=== PATIENT | female | born 1945 | race Caucasian/White ===

== ENCOUNTER 2016-02-12 15:41 | Emergency (ER) | payer OTHER, MEDICARE ==
[~2016-02-12] VITALS: Ht 160 cm; Wt 74.8 kg
[2016-02-12] MEDS ORDERED: LABETALOL HCL200 MG PO (15:48)
[2016-02-12] MEDS ORDERED: LORAZEPAM1 MG PO (15:48)
[2016-02-12] MEDS ORDERED: VENLAFAXINE HY150 M2 PO (15:48)
[2016-02-12] MEDS ORDERED: ATORVASTATIN CA20 M1 PO (15:48)
[2016-02-12] MEDS ORDERED: TRAMADOL HCL50 MG PO (17:27)
== END 2016-02-12 18:53 | disposition home or self-care (01) ==
LOC: ED 15:41
DX: S86.911A Strain of unspecified muscle(s) and tendon(s) at lower leg level, right leg, initial encounter (principal); X58.XXXA Exposure to other specified factors, initial encounter; Y93.89 Activity, other specified; Y92.9 Unspecified place or not applicable; Y99.9 Unspecified external cause status

== ENCOUNTER → 2016-02-14 | Outpatient (CLI) | payer OTHER, MEDICARE ==
[~2016-02-14] MED LIST: ATORVASTATIN CA20 M1 PO; LABETALOL HCL200 MG PO; LORAZEPAM1 MG PO; TRAMADOL HCL50 MG PO; VENLAFAXINE HY150 M2 PO
== END | disposition home or self-care (01) ==
LOC: ORTHO 01:15
DX: M17.0 Bilateral primary osteoarthritis of knee (principal); M25.561 Pain in right knee; M25.562 Pain in left knee; M25.762 Osteophyte, left knee; M25.761 Osteophyte, right knee

== ENCOUNTER → 2016-08-21 | Outpatient (CLI) | payer OTHER, MEDICARE | END | disposition home or self-care (01) | LOC: MAMMO 07-31 10:00 | DX: Z12.31 Encounter for screening mammogram for malignant neoplasm of breast (principal) ==

== ENCOUNTER 2017-05-26 11:21 | Inpatient (IN) | payer OTHER, MEDICARE ==
[~2017-05-26] VITALS: Ht 160 cm; Wt 81.6 kg
[2017-05-26] VITALS (7 sets, daily range): BP systolic 135–173; BP diastolic 53–93
--- NOTE | ~2017-05-26 | PR ---
[place], [place] PROGRESS NOTE NAME: SHYANNE GARCIA [facility] #: [id number] UNIT #: [id number] ROOM: 309 DOCTOR: ROMAN ALBARRAN DO BIRTHDATE: [birth year] DOS: 05/29/2017 CHIEF COMPLAINT: Very anxious. SUMMARY OF THE VISIT: The patient was interviewed in her room. She stated that she still feels anxious, although she reports that her did remark that there was some improvement, stated that she was talking with him more yesterday per staff. She appears to be in less pain overall, that her anxiety does seem to be improving, although she continues to be anxious and depressed, seems at least at this time she is continuing to feel these things and to her does not show significant improvement. MENTAL STATUS EXAMINATION: She is alert and oriented. Mood is very depressed with anxious overtones. There are no symptoms of gordon or hypomania. No overt auditory or visual hallucinations. She is without delusions or paranoia. Short-term, intermediate and long-term memories are intact. PLAN: We will continue to increase the Cymbalta to 30 mg in the morning, 90 mg at night, decrease the Effexor to 75 mg in the morning, one time dose change the Rozerem from p.r.n. of 8 mg to scheduled at night to monitor for potential benefit. Her urine came back positive for resistant E. coli. She is put in isolation precautions. We will attempt to engage her with appropriate activities with adult coloring books and things that will allow her to keep her busy instead of focusing on her anxiety and depression. I reassured her that her family is able to visit. We will continue to engage her individually at this time and monitor her with a plan to return her to the least restrictive environment when psychiatrically stable. ROMAN ALBARRAN DO RUFUS FELIX MD CM:PNTRANS [phone] ROMAN ALBARRAN DO 05/29/17 1236 interface
--- NOTE | ~2017-05-26 | PR ---
[place], [place] PROGRESS NOTE NAME: SHYANNE GARCIA UNIT #: [id number] ROOM: 309 DOCTOR: RUFUS FELIX MD BIRTHDATE: [birth year] DOS: 05/30/2017 CHIEF COMPLAINT: "I think I am getting better, but will this ever go away completely." SUMMARY OF THE VISIT: The patient was interviewed in her room. She was resting in bed. She reported that she tossed and turned somewhat last night. Overall, she is noting that she is feeling better, but still has periods where she cries and the pain is still excruciating. She still notes frequent bouts of depression and anxiety, but overall does feel a trend towards improvement. She reports tolerating the medication, titration up and down well. MENTAL STATUS: She is alert and oriented. Mood does seem to be trending towards euthymia. Affect is more appropriate. There are less anxiety and less outward depression. She did not cry during the interview today at all. There is no hypomania or gordon. There are no overt auditory or visual hallucinations. No delusions, no paranoia. Memory for the most part is intact. PLAN: I will maintain Cymbalta at 120 mg a day, continuing to taper the Effexor XR from 75 mg a day to 37.5. I will discontinue Rozerem due to ineffectiveness and start Klonopin 1 mg at bedtime to augment the effectiveness of the Ativan. Continue to engage in individual and perdue milieu activity with the plan to return to the least restrictive environment when psychiatrically stable. RUFUS FELIX MD CM:PNTRANS [id number] RUFUS FELIX MD 05/30/17 1116 interface
--- NOTE | ~2017-05-26 | WRIGHTHP ---
[place], [place] PATIENT HISTORY AND PHYSICAL EXAM NAME: SHYANNE GARCIA [facility] #: [id number] UNIT #: [id number] ROOM: 310 DOCTOR: RUFUS FELIX MD BIRTHDATE: [birth year] DOS: 05/27/2017 INITIAL PSYCHIATRIC EVALUATION CHIEF COMPLAINT: "I have just been so depressed and I am in so much pain." HISTORY OF PRESENT ILLNESS: This is a 72-year-old white female who presented to the Emergency Room at [facility] with complaints of increased depression, increased pain and increased anxiety. The patient recently had a right knee replacement performed at [facility] on May 04 and has been in unbearable pain since that time. She states that this pain has worn her down to the point where her depression, which has been long-standing has exacerbated during this 3-week period of time. She endorses poor sleep with difficulty falling asleep, sleep continuity disturbance, toddler teacher awakening, anergia, anhedonia, hopeless, helpless feelings, crying spells and inability to cope. Additionally, her anxiety level is quite high and she finds herself hyperventilating and feeling tightness in her chest quite often. She rates the pain on a scale of 1-10 with 10 being the worst pain, consistent 10. She is admitted now to rule out any organic factors, to stabilize on medication, to engage in individual and perdue milieu activity, returning to the least restrictive environment when psychiatrically stable. PAST MEDICAL HISTORY: Remarkable for degenerative joint disease and a right total knee replacement. MENTAL STATUS: Upon admission, the patient is alert and oriented. Mood is overwhelmingly depressed. Affect is flat, blunted and constricted and she openly cried throughout the interview. She endorses multiple neurovegetative symptoms and fleeting suicidal thoughts. She also endorses significant anxiety with much autonomic nervous system dysfunction. There is no hypomania or gordon. There are no auditory or visual hallucinations. No delusions, no paranoia. Short, intermediate and long-term memories are intact. DIAGNOSIS: Major depression, recurrent, severe and anxiety disorder, not otherwise specified. PLAN: I have already started to taper her Effexor. She presented with a dose of 150 mg twice daily. I have cut the dose down to 75 mg twice daily. I have started to cross taper then with Cymbalta 30 mg at bedtime, which I will now increase to 60 mg at bedtime, targeting a dose between 90 and 120. Screening examinations upon admission showed her vitamin D level to be low at 23.5, so I will augment with vitamin D 50,000 International Units weekly. We will engage in individual and perdue milieu activity, returning then to the least restrictive environment when psychiatrically stable. [place], [place] PATIENT HISTORY AND PHYSICAL EXAM NAME: SHYANNE GARCIA UNIT #: [id number] ROOM: 310 DOCTOR: RUFUS FELIX MD BIRTHDATE: [birth year] RUFUS FELIX MD CM:HISPHYS:PATIENT HISTORY AND PHYSICAL EXAMINATION [id number] RUFUS FELIX MD 05/27/17 1133 interface
--- NOTE | ~2017-05-26 | PR ---
[place], [place] PROGRESS NOTE [id number] UN[facility] #: [id number] ROOM: 310 DOCTOR: RUFUS FELIX MD BIRTHDATE: [birth year] DOS: 05/28/2017 CHIEF COMPLAINT: "The anxiety and depression is just driving me crazy. I am so sorry I'm crying." SUMMARY OF THE VISIT: The patient was interviewed in the group therapy room. She immediately burst into tears as I began talking to her. She reported to me that the pain is excruciating. The anxiety has still been high and her depression is overwhelming. She had poor sleep last night with difficulty falling asleep, sleep continuity disturbance and sandstone splitter awakening. She convincingly reports that if she has to live like this, she would rather be and would entertain suicide as the only option. She also though convincingly reports no side effects and is willing to allow me to adjust the medicines accordingly. MENTAL STATUS: She is alert and oriented. Mood is overwhelmingly depressed with anxious overtones. There is no gordon or hypomania. There are no overt auditory or visual hallucinations. No delusions, no paranoia. Short, intermediate, and long-term memory are intact. PLAN: I will increase the nighttime Cymbalta to 90 mg at bedtime, add Rozerem 8 mg at bedtime as needed and order straight Ativan 1 mg 3 times a day to try to get ahead of the anxiety, engage her in individual and perdue milieu activities with the plan to return home when psychiatrically stable. RUFUS FELIX MD CM:PNTRANS [id number] RUFUS FELXI MD 05/28/17 1208 interface
--- NOTE | ~2017-05-26 | PR ---
[place], [place] PROGRESS NOTE [id number] UNIT #: [id number] ROOM: 309 DOCTOR: RUFUS FELIX MD BIRTHDATE: [birth year] DOS: 05/31/2017 CHIEF COMPLAINT: "This pain isn't in my head. I think people don't believe me. I am just having a hard time with it." HISTORY OF THE VISIT: The patient was interviewed in her room. She reports to me that she did have a good day and overall felt like there was improvement in her mood and even to some extent her pain level. Her pain began to worsen in the evening when family had left and her mind went back to it and was able to focus on it more. She feels that people believe that she is just drug seeking or is making up the pain and was quite upset about this. Of note, the way she describes the pain is not the surgery site, but rather the pain starts at the bottom of her foot and travels up the lateral aspect of her leg into her hip. She does report tolerating all the medication changes well and does feel that the medicine is starting to benefit her. MENTAL STATUS: She is alert and oriented. Mood does seem to be trending towards euthymia and her anxiety is coming under control. There is no hypomania or gordon. There are no overt auditory or visual hallucinations, delusions or paranoia. Memory is intact. PLAN: I will discontinue the Effexor once and for all and maintain the Cymbalta. I will increase her nighttime dose of Klonopin from 1 mg to 2 mg at bedtime. I will defer this to the hospitalist, but I do wonder if a nerve conduction study on her right leg is warranted to see if there is any nerve damage from the surgery. We will continue to engage in individual and perdue milieu activity with the plan to return to the least restrictive environment when psychiatrically stable. URFUS FELIX MD CM:PNTRANS [id number] RUFUS FELIX MD 05/31/17 1026 interface
--- NOTE | ~2017-05-26 | DS ---
[place], [place] DISCHARGE SUMMARY NAME: SHYANNE GARCIA [facility] #: [id number] UNIT #: [id number] ROOM: 309 DOCTOR: RUFUS FELIX MD BIRTHDATE: [birth year] DOS: 06/01/2017 CHIEF COMPLAINT: "I have just been so depressed and I am in so much pain." HISTORY OF PRESENT ILLNESS: This is a 72-year-old white female who presented to the Emergency Room at [facility] with the complaints of increased depression, increased anxiety and increased pain. The patient recently had right knee replacement done at [facility] on May 04 and has been in unbearable pain since that time. She states that this pain has worn her down to the point where her depression, which has been longstanding, has been exacerbated during this 3-week period of time. During this period, she endorses poor sleep with difficulty falling asleep, sleep continuity disturbance, asparagus cutter awakening, anergia, anhedonia, hopeless, helpless feelings, crying spells, and inability to cope. Additionally, her anxiety level has been quite high and she finds herself hyperventilating and tightness of the chest. She rates the pain, currently on a scale of 1-10 with 10 being the worst pain ever, a 10. She is admitted now to rule out any organic factors, to stabilize on medication, to engage in individual and perdue milieu activities, returning to the least restrictive environment when psychiatrically stable. PAST MEDICAL HISTORY: Remarkable for degenerative joint disease and the right knee total replacement. SUMMARY OF HOSPITAL COURSE: The patient was admitted to the unit where she was found to be on Effexor 150 mg twice daily. This was cut in half to 75 mg twice daily. Initially during the early part of her stay, her blood pressure was elevated. Whether her blood pressure elevation was based on the tapering of the Effexor or her pain and anxiety was unclear, this stabilized pretty quickly. She was cross tapered on to Cymbalta 30 mg at bedtime, which was rapidly increased during her stay to its maximum dose of 30 mg in the morning and 90 mg at night. Eventually, the Effexor was successfully tapered and discontinued without any adverse event. She was maintained also on Ativan 1 mg 3 times daily. Later in her stay because she was having significant sleep disturbance, Klonopin 1 mg a day at bedtime, later increased to 2 mg at bedtime was added. She tolerated these medications well and exhibited no sedation, no daytime somnolence. Her depression and anxiety lifted considerably as did her pain. She voiced very positive plans for the future and was going to follow up with Renetta Pearson at [facility] for medication management. Coincidentally, the patient did have a low vitamin D level upon admission of 23.5, so vitamin D 50,000 International Units weekly was added. The patient was discharged then back home on 06/01/2017. She was medically and psychiatrically stable. Her biopsychosocial needs are adequately being met by her family and by her outpatient providers. MENTAL STATUS AT DISCHARGE: The patient is alert and oriented. Mood does seem to be trending towards euthymia. Affect is more appropriate. There is no gordon, hypomania or psychosis. No suicidal thoughts, no homicidal thoughts. Memory is intact. FINAL DIAGNOSES: Major depression, recurrent, severe, and generalized anxiety [place], [place] DISCHARGE SUMMARY NAME: SHYANNE GARCIA UNIT #: [id number] ROOM: 309 DOCTOR: RUFUS FELIX MD BIRTHDATE: [birth year] disorder. PLAN: All of her prescriptions have been printed and will be sent with her. She will follow up with Renetta Pearson at [facility]. She is medically stable, psychiatrically stable and her biopsychosocial needs are adequately being met. RUFUS FELIX MD CM:DISCHARG [phone] RUFUS FELIX MD 06/01/17 0903 interface
[2017-05-26 12:48] LABS: BASO # 0.1 10*3/uL (0.0-0.1); BASO % 0.5 % (0.0-1.0); HEMATOCRIT 42.7 % (37.0-47.0); HEMOGLOBIN 14.2 g/dl (12.0-16.0); LYMPH # 1.4 10*3/uL (1.3-4.4); LYMPH % 14.2 % (27.0-41.0); MEAN CORPUSCULAR HGB 28.9 pg (27.0-31.0); MEAN CORPUSCULAR HGB CONC 33.3 g/dl (33.0-37.0); MEAN PLATELET VOLUME 10.4 fl (9.6-12.3); MONO # 0.7 10*3/uL (0.1-1.0); MONO % 7.5 % (3.0-9.0); NEUT # 7.7 10*3/uL (2.3-7.9); NEUT % 77.4 % (47.0-73.0); PLATELET COUNT AUTOMATED 474 10*3/uL (130-400); RED BLOOD COUNT 4.91 10*6/uL (4.10-5.10); RED CELL DISTRI WIDTH 13.3 % (0-14.5); WHITE BLOOD COUNT 9.9 10*3/uL (4.8-10.8)
[2017-05-26 13:05] LABS: ALBUMIN 3.9 gm/dl (3.1-4.5); ALKALINE PHOSPHATASE 158 U/L (45-117); BUN 18 mg/dl (7-24); CHLORIDE 102 mmol/L (98-107); CREATININE 0.72 mg/dL (0.55-1.02); POTASSIUM 3.9 mmol/L (3.5-5.1); SGOT/AST 15 IU/L (3-35); SGPT/ALT 21 U/L (12-78); SODIUM 136 mmol/L (136-145); TOTAL PROTEIN 8.2 gm/dL (6.4-8.2)
[2017-05-26 14:16] LABS: BILIRUBIN NEGATIVE (NEGATIVE); BLOOD 1+ (NEGATIVE); CLARITY CLOUDY (CLEAR); COLOR YELLOW (YELLOW); GLUCOSE NEGATIVE (NEGATIVE); KETONE NEGATIVE (NEGATIVE); LEUKO ESTERASE TRACE (NEGATIVE); NITRITE POSITIVE (NEGATIVE); SPECIFIC GRAVITY 1.025 (1.005-1.030); UROBILINOGEN 0.2 E.U./dl (0.2-1.0)
[2017-05-26 14:27] LABS: RBC 0-2 rbc/hpf (0-2)
[2017-05-26 14:28] LABS: BACTERIA 4+; EPITHELIAL CELLS 0-2; MUCOUS TRACE
[2017-05-26] MEDS ORDERED: MEDROL DOSEPAK4 MG PO (17:47)
[2017-05-26] MEDS ORDERED: NORVASC5 MG PO (17:48)
[2017-05-26] MEDS ORDERED: PERCOCET 5-3251 EACH PO (17:50)
[2017-05-27 06:45] LABS: BASO % 0.4 % (0.0-1.0); EOS # 0.1 10*3/uL (0.0-0.4); EOS % 1.5 % (1.0-4.0); HEMATOCRIT 39.8 % (37.0-47.0); LYMPH # 2.4 10*3/uL (1.3-4.4); LYMPH % 26.9 % (27.0-41.0); MEAN CORPUSCULAR HGB 29.1 pg (27.0-31.0); MEAN CORPUSCULAR HGB CONC 32.7 g/dl (33.0-37.0); MEAN PLATELET VOLUME 10.1 fl (9.6-12.3); MONO # 0.9 10*3/uL (0.1-1.0); MONO % 9.7 % (3.0-9.0); NEUT # 5.5 10*3/uL (2.3-7.9); NEUT % 61.1 % (47.0-73.0); PLATELET COUNT AUTOMATED 412 10*3/uL (130-400); RED BLOOD COUNT 4.47 10*6/uL (4.10-5.10); RED CELL DISTRI WIDTH 13.3 % (0-14.5)
[2017-05-27 06:54] LABS: THYROID STIM HORMONE (HS) 1.95 uIU/ml (0.358-4.75)
[2017-05-27 08:00] VITALS: BP 177/69
[2017-05-27 09:50] LABS: VITAMIN D, 25-HYDROXY 23.5 ng/mL (30-100)
[2017-05-27 20:00] VITALS: BP 167/79
[2017-05-28 09:07] VITALS: BP 165/65
[2017-05-28 20:06] VITALS: BP 158/71
[2017-05-29 07:52] VITALS: BP 158/72
[2017-05-29 20:01] VITALS: BP 151/62
[2017-05-30 07:59] VITALS: BP 146/78
[2017-05-30 20:00] VITALS: BP 153/69
[2017-05-31 07:18] VITALS: BP 141/76
[2017-05-31 20:23] VITALS: BP 136/72
[2017-06-01 07:55] VITALS: BP 153/72
[2017-06-01] MEDS ORDERED: KLONOPIN2 M1 PO (08:22)
[2017-06-01] MEDS ORDERED: LORAZEPAM1 MG PO (08:22)
[2017-06-01] MEDS ORDERED: DULOXETINE HCL30 MG PO ×2 (08:22)
[2017-06-01] MEDS ORDERED: Vitamin D PO (08:22)
[2017-06-01] MEDS ORDERED: Septra SS 400 MG-80 PO (11:58)
== END 2017-06-01 13:00 | disposition home or self-care (01) | DRG 885 ==
LOC: ED 11:21 → 3N 16:20
PROVIDERS: Emergency Medicine; Psychiatry & Neurology Psychiatry
DX: F33.2 Major depressive disorder, recurrent severe without psychotic features (principal); N39.0 Urinary tract infection, site not specified; D47.3 Essential (hemorrhagic) thrombocythemia; D72.810 Lymphocytopenia; F41.1 Generalized anxiety disorder; D72.9 Disorder of white blood cells, unspecified; Z96.651 Presence of right artificial knee joint; R00.0 Tachycardia, unspecified; R06.82 Tachypnea, not elsewhere classified; D72.818 Other decreased white blood cell count; R73.9 Hyperglycemia, unspecified; E66.09 Other obesity due to excess calories; M17.11 Unilateral primary osteoarthritis, right knee; Z68.31 Body mass index [BMI] 31.0-31.9, adult; Z79.899 Other long term (current) drug therapy; Z82.49 Family history of ischemic heart disease and other diseases of the circulatory system; Z81.2 Family history of tobacco abuse and dependence

== ENCOUNTER 2017-07-08 09:53 | Inpatient (IN) | payer OTHER, MEDICARE ==
[~2017-07-08] VITALS: Ht 162.5 cm; Wt 75.7 kg
--- NOTE | ~2017-07-08 | DS ---
[place], [place] DISCHARGE SUMMARY NAME: SHYANNE GARCIA [facility] #: [id number] UNIT #: [id number] ROOM: 310 DOCTOR: RUFUS FELIX MD BIRTHDATE: [birth year] DOS: 07/13/2017 CHIEF COMPLAINT: "I felt so horrible. I don't know. I think it was the Remeron." HISTORY OF PRESENT ILLNESS: This is a 72-year-old white female known to me from [facility]. The patient presented to the emergency room with complaints of feeling jittery and ready to jump out of her skin. She reports that following her discharge from the psychiatric unit, she was prescribed just Cymbalta 90 mg a day. Her nurse practitioner at [facility] subsequently added BuSpar and then most recently added Remeron. Following the addition of the Remeron, the patient began to decompensate considerably. She noticed very bizarre, vivid dreams with significant sleep disturbance, increased daytime anxiety with jittery feelings, extreme abdominal pain, shortness of breath and inability to cope. The patient was unclear what was causing these symptoms and thought it might be the medication itself. She did discontinue the Remeron on Thursday prior to coming to the hospital, but continued to feel the symptoms to the point where she presented to the emergency room complaining of depression and a plethora of somatic complaints. She is now admitted to the [facility] to rule out further organic factors and to attempt to re-stabilize on her medication, returning home when stable. PAST MEDICAL HISTORY: Remarkable for degenerative joint disease, hypertension, hyperlipidemia, obesity, vitamin D deficiency, recent total knee. The patient denies alcohol use. Does not use illicit drugs or smoke cigarettes. STRENGTHS: She is ambulatory. She is relatively healthy. She lives in a very supportive living environment and has good verbal skills. SUMMARY OF THE HOSPITAL COURSE: The patient was admitted to the unit where her Remeron and BuSpar were discontinued and she was maintained on Cymbalta 30 mg in the morning and 60 mg at bedtime. She utilized Ativan sparingly to help with some breakthrough anxiety and also use Rozerem and trazodone sparingly as a nighttime sleep aid. With the Cymbalta alone and without the other medicines on board, the patient's symptoms dissipated. Lot of support and encouragement was given to her to understand that what she was experiencing was medication side effects and would be time limited. She improved sufficiently over her course and she felt positive about returning home and voiced positive plans for the future. She convincingly denied medication side effects at the time of discharge. MENTAL STATUS AT DISCHARGE: The patient is alert and oriented to person, place and time. Mood does seem to be strongly trending towards euthymia and affect is much more appropriate. There is no symptom suggestive of gordon or hypomania. There is no psychotic symptomatology seen. Short, intermediate and long-term memory are intact. DIAGNOSES AT DISCHARGE: Major depression, recurrent, severe and anxiety [place], [place] DISCHARGE SUMMARY NAME: SHYANNE GARCIA UNIT #: [id number] ROOM: 310 DOCTOR: RUFUS FELIX MD BIRTHDATE: [birth year] disorder, not otherwise specified. DISPOSITION: The patient is to return home. She will have followup by her outpatient provider. Her prescriptions have been e-scribed to [facility]. She is medically and psychiatrically stable. Her biopsychosocial needs are adequately being met by the community at large. RUFUS FELIX MD CM:MONCHO [phone] RUFUS FELIX MD 07/13/17 5338 interface
--- NOTE | ~2017-07-08 | PR ---
[place], [place] PROGRESS NOTE [id number] UN[facility] #: [id number] ROOM: 310 DOCTOR: LUIS E YUSUF MD BIRTHDATE: [birth year] DOS: 07/12/2017 SUBJECTIVE: Patient seen and spoke with the staff. Per staff, patient did not sleep well last night. Still very needy, rude at times. Patient was pleasant and cooperative. She was in the day area. She said that she is doing well and feeling better. She talked about her poor sleep, did not express any other problems or concerns. She said she is taking her medication regularly and did not have any side effect. She denied any depressed mood or hopelessness. MENTAL STATUS EXAMINATION: Pleasant and cooperative. Described her mood as "better." Affect, mood congruent. Thought process goal directed. No flight of ideas, loosening of association. She denied auditory or visual hallucination. No delusion or paranoia noted. She denied suicidal ideation, intent or plan. She also denied any homicidal ideation, intent or plan. PLAN: 1. Continue current medications and care. 2. Continue redirection. 3. Supportive care. 4. Final medication management and discharge plan by the regular team. LUIS E YUSUF MD CM:PNTRANS [phone] LUIS E YUSUF MD 07/13/17 1519 interface
--- NOTE | ~2017-07-08 | PR ---
[place], [place] PROGRESS NOTE [id number] #: [id number] ROOM: 310 DOCTOR: LUIS E YUSUF MD BIRTHDATE: [birth year] DOS: 07/11/2017 PSYCHIATRIC PROGRESS NOTE SUBJECTIVE: The patient seen and spoke with the staff. Per staff, the patient is attention-seeking, taking medication. She slept only 1-1/2 hours last night. The patient was pleasant and cooperative. She reports being anxious, but said that the anxiety is not as bad as before. She also talked about poor sleep. She denied any thoughts of harming herself or anyone else. She also denied any side effect from the medication. MENTAL STATUS EXAMINATION: Pleasant, cooperative, described her mood as "okay." Affect was constricted. Thought process goal-directed. No flight of ideas or loosening of association. She denied auditory or visual hallucination. No delusion or paranoia noted. She denied suicidal ideation, intent or plan. She also denied any homicidal ideation, intent or plan. PLAN: 1. Continue current medication and care. 2. Continue redirection. 3. Encourage activity and groups. LUIS E YUSUF MD CM:PNTRANS 26 3 LUIS E YUSUF MD 07/12/17 0343 interface
--- NOTE | ~2017-07-08 | WRIGHTHP ---
[place], [place] PATIENT HISTORY AND PHYSICAL EXAM [id number] #: [id number] ROOM: 310 DOCTOR: RUFUS FELIX MD BIRTHDATE: [birth year] DOS: 07/09/2017 CHIEF COMPLAINT: "I felt so horrible, I don't know. I think it was the Remeron." HISTORY OF PRESENT ILLNESS: This is a 72-year-old white female known to me from a previous admission here to the [facility]. The patient presented to the ER with complaints of feeling jittery and ready to jump out of her skin. She reports following her discharge from the psychiatric unit prescribed just Cymbalta 90 mg a day. Her nurse practitioner at [facility] subsequently added BuSpar and then most recently added Remeron. Following the addition of the Remeron, the patient began to decompensate considerably. She noticed very bizarre, vivid dreams, sleep disturbance, increased anxiety, jittery feeling, extreme abdominal pain, feeling short of breath and unable to cope. The patient was unclear whether it was the medication or not. She did discontinue the Remeron on Thursday prior to coming into the hospital, but continued to feel miserable to the point where she presented to the Emergency Room complaining of increased depression as well as this plethora of somatic complaints. She is admitted now to rule out possible organic factors to attempt to re-stabilize on medication, to engage in individual and perdue milieu activity, returning home when stable. PAST MEDICAL HISTORY: Remarkable for degenerative joint disease, hypertension, hyperlipidemia, obesity, vitamin D deficiency and a recent total knee replacement. From a social standpoint, she denies alcohol use. She does not use illicit drugs nor does she smoke cigarettes. STRENGTHS: The patient is ambulatory. She is relatively healthy. She lives in a very supportive living environment and she has good verbal skills. MENTAL STATUS. Upon admission, the patient is alert and oriented x 3. Mood is somewhat depressed with anxious overtones. She endorses multiple neurovegetative symptoms. There is no hypomania or gordon. There are no auditory or visual hallucinations currently. There is no paranoia or delusions. Short term, intermediate, and long-term memory for the most part are intact. DIAGNOSIS: Major depression, recurrent, severe, and generalized anxiety disorder. PLAN: I have discontinued her Remeron and BuSpar and maintained her on Cymbalta 30 mg in the morning and 60 mg at bedtime. She can utilize Ativan as needed to help with breakthrough anxiety. We will continue to have her engage in individual and perdue milieu activity, returning then home when stable. [place], [place] PATIENT HISTORY AND PHYSICAL EXAM NAME: SHYANNE GARCIA UNIT #: [id number] ROOM: 310 DOCTOR: RUFUS FELIX MD BIRTHDATE: [birth year] RUFUS FELIX MD CM:HISPHYS:PATIENT HISTORY AND PHYSICAL EXAMINATION 1017 RUFUS FELIX MD 07/09/17 1015 interface
--- NOTE | ~2017-07-08 | PR ---
[place], [place] PROGRESS NOTE NAME: SHYANNE GARCIA UNIT #: [id number] ROOM: 310 DOCTOR: VALE ROA DO BIRTHDATE: [birth year] DOS: 07/10/2017 PSYCHIATRIC PROGRESS NOTE CHIEF COMPLAINT: "I need help." SUMMARY OF VISIT: This is a 72-year-old white female who appears teary eyed and in mild distress, sitting in a chair in the dining room. Patient states that she was not able to sleep at all last night and that she still hears ringing in her ear and she would like it to be stopped. Patient revealed to nursing staff this morning that actually she is on another blood pressure medication that she takes twice daily. Upon confirmation, it was labetalol that she gets b.i.d. and patient was given that medication. She states that she is very jittery and is not feeling like herself. She is very nervous about taking Ativan because she was told not to take it in the past. Patient would like something to help her calm her down and she would like something to stop the ringing in her ears. MENTAL STATUS EXAMINATION: Patient is alert and oriented to self, place and time. Her mood is very anxious. There is currently no hypomania or gordon. There is ringing of the ears that she is hearing that she said comes and goes, but currently has been there since last night. Short term, intermediate, and long-term memory are intact. PLAN: We will start her on Rozerem 80 p.o. at bedtime p.r.n. for helping her to sleep at night. She will get Ativan p.r.n. for some of the anxious episodes that she is experiencing to help with the breakthrough anxiety. She will be returning home when she is stable at a psychiatric level. ADDENDUM BY DR. FELIX 07/16/17 11:15 AM: Above note reviewed. Agree with observations, recommendations, and overall treatment plan. Vale Roa DO [place], [place] PROGRESS NOTE NAME: SHYANNE GARCIA UNIT #: [id number] ROOM: 310 DOCTOR: VALE ROA DO BIRTHDATE: [birth year] RUFUS FELIX MD CM:MARGARITA [id number] T: VALE ROA DO 07/16/17 1410 JERSON GARCIA.R
[~2017-07-08 09:53] MED LIST changes: +DULOXETINE HCL30 MG PO; +KLONOPIN2 M1 PO; +MEDROL DOSEPAK4 MG PO; +NORVASC5 MG PO; +PERCOCET 5-3251 EACH PO; +Septra SS 400 MG-80 PO; +Vitamin D PO
[2017-07-08 09:57] VITALS: BP 151/60
[2017-07-08 10:48] LABS: BASO # 0.1 10*3/uL (0.0-0.1); BASO % 0.5 % (0.0-1.0); EOS # 0.2 10*3/uL (0.0-0.4); EOS % 1.9 % (1.0-4.0); HEMATOCRIT 39.7 % (37.0-47.0); LYMPH % 20.3 % (27.0-41.0); MEAN CELL VOLUME 86.1 fl (81.0-99.0); MEAN CORPUSCULAR HGB 28.2 pg (27.0-31.0); MEAN CORPUSCULAR HGB CONC 32.7 g/dl (33.0-37.0); MEAN PLATELET VOLUME 10.1 fl (9.6-12.3); MONO # 0.9 10*3/uL (0.1-1.0); MONO % 8.7 % (3.0-9.0); NEUT # 6.8 10*3/uL (2.3-7.9); NEUT % 68.2 % (47.0-73.0); PLATELET COUNT AUTOMATED 347 10*3/uL (130-400); RED BLOOD COUNT 4.61 10*6/uL (4.10-5.10); RED CELL DISTRI WIDTH 13.5 % (0-14.5)
[2017-07-08 10:56] LABS: BILIRUBIN NEGATIVE (NEGATIVE); BLOOD NEGATIVE (NEGATIVE); CLARITY SL CLOUDY (CLEAR); COLOR YELLOW (YELLOW); GLUCOSE NEGATIVE (NEGATIVE); KETONE TRACE (NEGATIVE); LEUKO ESTERASE TRACE (NEGATIVE); NITRITE NEGATIVE (NEGATIVE); SPECIFIC GRAVITY >= 1.030 (1.005-1.030); UROBILINOGEN 0.2 E.U./dl (0.2-1.0)
[2017-07-08 10:56] LABS: ACT PARTIAL THROMBO TIME 22.7 SECONDS (20.8-31.5)
[2017-07-08 11:03] LABS: ALBUMIN 3.7 gm/dl (3.1-4.5); ALKALINE PHOSPHATASE 124 U/L (45-117); BUN 15 mg/dl (7-24); CHLORIDE 110 mmol/L (98-107); CREATININE 0.69 mg/dL (0.55-1.02); LIPASE 252 U/L (73-393); POTASSIUM 3.5 mmol/L (3.5-5.1); SGOT/AST 13 IU/L (3-35); SGPT/ALT 20 U/L (12-78); SODIUM 141 mmol/L (136-145); TOTAL PROTEIN 7.8 gm/dL (6.4-8.2)
[2017-07-08 11:06] LABS: TROPONIN I < 0.015 ng/ml (<0.045)
[2017-07-08 11:12] LABS: BACTERIA 1+; CALCIUM OXALATE CRYSTALS 3+; MUCOUS 2+
[2017-07-08] MEDS ORDERED: BUSPAR15 MG PO (14:07)
[2017-07-08] MEDS ORDERED: CYMBALTA60 MG PO (14:08)
[2017-07-08] MEDS ORDERED: REMERON15 M2 PO (14:11)
[2017-07-08 15:04] VITALS: BP 157/58
[2017-07-08 15:09] VITALS: BP 157/58
[2017-07-08 20:00] VITALS: BP 138/69
[2017-07-09 07:06] LABS: THYROID STIM HORMONE (HS) 2.19 uIU/ml (0.358-4.75)
[2017-07-09 07:56] VITALS: BP 134/87
[2017-07-09 08:34] LABS: VITAMIN D, 25-HYDROXY 34.5 ng/mL (30-100)
[2017-07-09 20:29] VITALS: BP 168/80
[2017-07-10 08:05] VITALS: BP 240/98
[2017-07-10] MEDS ORDERED: LABETALOL HCL200 MG PO (08:52)
[2017-07-10 09:05] VITALS: BP 220/90
[2017-07-10 10:58] VITALS: BP 198/88
[2017-07-10 16:37] VITALS: BP 158/86
[2017-07-10 19:21] VITALS: BP 147/66
[2017-07-11 07:34] VITALS: BP 150/67
[2017-07-11 20:00] VITALS: BP 148/68
[2017-07-12 07:41] VITALS: BP 154/66
[2017-07-12 20:29] VITALS: BP 146/72
[2017-07-13 08:00] VITALS: BP 156/64
[2017-07-13] MEDS ORDERED: ZOSTRIX 0.025%,60 GM T (09:13)
[2017-07-13] MEDS ORDERED: DULOXETINE HCL60 MG PO (09:13)
[2017-07-13] MEDS ORDERED: DULOXETINE HCL30 MG PO (09:13)
[2017-07-13] MEDS ORDERED: HYDROXYZINE PAM25 M1 PO (09:13)
== END 2017-07-13 12:58 | disposition home or self-care (01) | DRG 885 ==
LOC: ED 09:53 → 3N 14:02
PROVIDERS: Emergency Medicine; Psychiatry & Neurology Psychiatry
DX: F33.2 Major depressive disorder, recurrent severe without psychotic features (principal); E87.8 Other disorders of electrolyte and fluid balance, not elsewhere classified; E83.41 Hypermagnesemia; R82.71 Bacteriuria; D72.810 Lymphocytopenia; R74.8 Abnormal levels of other serum enzymes; R80.9 Proteinuria, unspecified; F41.1 Generalized anxiety disorder; I10 Essential (primary) hypertension; E78.5 Hyperlipidemia, unspecified; M19.90 Unspecified osteoarthritis, unspecified site; E66.9 Obesity, unspecified; Z96.659 Presence of unspecified artificial knee joint; E55.9 Vitamin D deficiency, unspecified; Z82.49 Family history of ischemic heart disease and other diseases of the circulatory system; Z81.2 Family history of tobacco abuse and dependence; Z79.899 Other long term (current) drug therapy; Z68.28 Body mass index [BMI] 28.0-28.9, adult

== ENCOUNTER → 2018-04-28 | Outpatient (CLI) | payer OTHER, MEDICARE ==
[~2018-04-28] MED LIST changes: +BUSPAR15 MG PO; +CYMBALTA60 MG PO; +DULOXETINE HCL60 MG PO; +HYDROXYZINE PAM25 M1 PO; +REMERON15 M2 PO; +ZOSTRIX 0.025%,60 GM T
== END | disposition home or self-care (01) ==
LOC: MAMMO 08:40
DX: Z12.31 Encounter for screening mammogram for malignant neoplasm of breast (principal)

== ENCOUNTER → 2020-01-04 | Outpatient (CLI) | payer OTHER, MEDICARE | END | disposition home or self-care (01) | LOC: MAMMO 10:10 | PROVIDERS: ATTEND Nurse Practitioner Family | DX: Z12.31 Encounter for screening mammogram for malignant neoplasm of breast (principal) ==

== ENCOUNTER → 2020-01-18 | Outpatient (CLI) | payer OTHER, MEDICARE | END | disposition home or self-care (01) | LOC: US 13:41 | PROVIDERS: ATTEND Nurse Practitioner Family | DX: K76.0 Fatty (change of) liver, not elsewhere classified (principal); N28.1 Cyst of kidney, acquired ==

== ENCOUNTER → 2020-10-18 | Outpatient (CLI) | payer OTHER, MEDICARE ==
[2020-10-18 11:03] LABS: BASO # 0.1 10*3/uL (0.0-0.1); EOS # 0.3 10*3/uL (0.0-0.4); EOS % 4.9 % (1.0-4.0); HEMATOCRIT 41.5 % (37.0-47.0); LYMPH # 1.5 10*3/uL (1.3-4.4); LYMPH % 21.4 % (27.0-41.0); MEAN CELL VOLUME 87.4 fl (81.0-99.0); MEAN CORPUSCULAR HGB 29.5 pg (27.0-31.0); MEAN CORPUSCULAR HGB CONC 33.7 g/dl (33.0-37.0); MEAN PLATELET VOLUME 10.5 fl (9.6-12.3); MONO # 0.6 10*3/uL (0.1-1.0); MONO % 9.2 % (3.0-9.0); NEUT # 4.3 10*3/uL (2.3-7.9); NEUT % 63.4 % (47.0-73.0); PLATELET COUNT AUTOMATED 296 10*3/uL (130-400); RED BLOOD COUNT 4.75 10*6/uL (4.10-5.10); RED CELL DISTRI WIDTH 13.1 % (0-14.5); WHITE BLOOD COUNT 6.8 10*3/uL (4.8-10.8)
[2020-10-18 11:31] LABS: ALBUMIN 3.3 gm/dl (3.1-4.5); ALKALINE PHOSPHATASE 93 U/L (45-117); BUN 9 mg/dl (7-24); CHLORIDE 109 mmol/L (98-107); CHOLESTEROL 168 mg/dL (<200); CREATININE 0.73 mg/dL (0.55-1.02); LDL CHOLESTEROL 88 mg/dL (9-159); POTASSIUM 4.3 mmol/L (3.5-5.1); SGOT/AST 10 IU/L (3-35); SGPT/ALT 18 U/L (12-78); SODIUM 139 mmol/L (136-145); TOTAL PROTEIN 7.6 gm/dL (6.4-8.2); TRIGLYCERIDES 129 mg/dl (<150)
== END | disposition home or self-care (01) ==
LOC: LAB 10:46
PROVIDERS: ATTEND Nurse Practitioner Family
DX: I10 Essential (primary) hypertension (principal); R73.01 Impaired fasting glucose; E78.5 Hyperlipidemia, unspecified; M25.50 Pain in unspecified joint

== ENCOUNTER → 2021-01-16 | Outpatient (CLI) | payer OTHER, MEDICARE | END | disposition home or self-care (01) | LOC: MAMMO 01-09 11:30 | PROVIDERS: ATTEND Nurse Practitioner Family | DX: Z12.31 Encounter for screening mammogram for malignant neoplasm of breast (principal) ==

== ENCOUNTER → 2021-04-25 | Outpatient (CLI) | payer OTHER, MEDICARE ==
[2021-04-25 12:07] LABS: BASO # 0.1 10*3/uL (0.0-0.1); BASO % 0.8 % (0.0-1.0); EOS # 0.3 10*3/uL (0.0-0.4); EOS % 5.3 % (1.0-4.0); HEMATOCRIT 44.7 % (37.0-47.0); LYMPH # 1.6 10*3/uL (1.3-4.4); LYMPH % 24.9 % (27.0-41.0); MEAN CELL VOLUME 89.4 fl (81.0-99.0); MEAN CORPUSCULAR HGB 29.4 pg (27.0-31.0); MEAN CORPUSCULAR HGB CONC 32.9 g/dl (33.0-37.0); MEAN PLATELET VOLUME 10.3 fl (9.6-12.3); MONO # 0.6 10*3/uL (0.1-1.0); MONO % 8.6 % (3.0-9.0); NEUT # 3.9 10*3/uL (2.3-7.9); NEUT % 59.9 % (47.0-73.0); PLATELET COUNT AUTOMATED 295 10*3/uL (130-400); RED CELL DISTRI WIDTH 12.9 % (0-14.5); WHITE BLOOD COUNT 6.4 10*3/uL (4.8-10.8)
[2021-04-25 12:22] LABS: ALKALINE PHOSPHATASE 91 U/L (45-117); BUN 6 mg/dl (7-24); CHLORIDE 107 mmol/L (98-107); CHOLESTEROL 183 mg/dL (<200); CREATININE 0.75 mg/dL (0.55-1.02); LDL CHOLESTEROL 94 mg/dL (9-159); POTASSIUM 4.2 mmol/L (3.5-5.1); SGOT/AST 12 IU/L (3-35); SGPT/ALT 17 U/L (12-78); SODIUM 140 mmol/L (136-145); TOTAL PROTEIN 7.6 gm/dL (6.4-8.2); TRIGLYCERIDES 169 mg/dl (<150)
== END | disposition home or self-care (01) ==
LOC: LAB 11:49
PROVIDERS: ATTEND Nurse Practitioner Family
DX: I10 Essential (primary) hypertension (principal); E78.5 Hyperlipidemia, unspecified; R73.01 Impaired fasting glucose

== ENCOUNTER → 2022-01-22 | Outpatient (CLI) | payer OTHER, MEDICARE | LOC: MAMMO 13:30 | PROVIDERS: ATTEND Nurse Practitioner Family | DX: Z12.31 Encounter for screening mammogram for malignant neoplasm of breast (principal) ==

== ENCOUNTER → 2022-05-07 | Outpatient (CLI) | payer OTHER, MEDICARE ==
[2022-05-07 12:43] LABS: BASO # 0.1 10*3/uL (0.0-0.1); BASO % 0.5 % (0.0-1.0); EOS # 0.3 10*3/uL (0.0-0.4); EOS % 3.1 % (1.0-4.0); HEMATOCRIT 42.8 % (37.0-47.0); LYMPH % 20.2 % (27.0-41.0); MEAN CELL VOLUME 88.8 fl (81.0-99.0); MEAN CORPUSCULAR HGB CONC 32.7 g/dl (33.0-37.0); MEAN PLATELET VOLUME 10.8 fl (9.6-12.3); MONO # 0.8 10*3/uL (0.1-1.0); MONO % 7.7 % (3.0-9.0); NEUT # 6.6 10*3/uL (2.3-7.9); NEUT % 68.4 % (47.0-73.0); PLATELET COUNT AUTOMATED 273 10*3/uL (130-400); RED BLOOD COUNT 4.82 10*6/uL (4.10-5.10); RED CELL DISTRI WIDTH 13.2 % (0-14.5); WHITE BLOOD COUNT 9.7 10*3/uL (4.8-10.8)
[2022-05-07 14:00] LABS: ALKALINE PHOSPHATASE 86 U/L (46-116); BUN 6 mg/dl (9-23); CHLORIDE 105 mmol/L (98-107); CHOLESTEROL 152 mg/dL (<200); LDL CHOLESTEROL 72 mg/dL (9-159); POTASSIUM 4.3 mmol/L (3.4-5.1); SGPT/ALT 15 U/L (10-49); TOTAL PROTEIN 7.2 gm/dL (6.0-8.0); TRIGLYCERIDES 129 mg/dl (<150)
== END | disposition home or self-care (01) ==
LOC: LAB 12:12
PROVIDERS: ATTEND Nurse Practitioner Family
DX: I10 Essential (primary) hypertension (principal); E78.5 Hyperlipidemia, unspecified; R73.9 Hyperglycemia, unspecified; E55.9 Vitamin D deficiency, unspecified

== ENCOUNTER → 2022-11-28 | Outpatient (CLI) | payer OTHER, MEDICARE ==
[2022-11-28 11:21] LABS: BASO # 0.1 10*3/uL (0.0-0.1); BASO % 0.7 % (0.0-1.0); EOS # 0.3 10*3/uL (0.0-0.4); EOS % 3.5 % (1.0-4.0); HEMATOCRIT 42.8 % (37.0-47.0); LYMPH # 1.8 10*3/uL (1.3-4.4); LYMPH % 21.9 % (27.0-41.0); MEAN CELL VOLUME 87.3 fl (81.0-99.0); MEAN CORPUSCULAR HGB 29.2 pg (27.0-31.0); MEAN CORPUSCULAR HGB CONC 33.4 g/dl (33.0-37.0); MEAN PLATELET VOLUME 10.6 fl (9.6-12.3); MONO # 0.5 10*3/uL (0.1-1.0); NEUT # 5.6 10*3/uL (2.3-7.9); NEUT % 67.5 % (47.0-73.0); PLATELET COUNT AUTOMATED 303 10*3/uL (130-400); RED CELL DISTRI WIDTH 12.8 % (0-14.5); WHITE BLOOD COUNT 8.3 10*3/uL (4.8-10.8)
[2022-11-28 11:53] LABS: ALKALINE PHOSPHATASE 85 U/L (46-116); BUN < 5 mg/dl (9-23); CHLORIDE 106 mmol/L (98-107); CHOLESTEROL 164 mg/dL (<200); LDL CHOLESTEROL 85 mg/dL (9-159); SGPT/ALT 12 U/L (5-49); TOTAL PROTEIN 7.2 gm/dL (6.0-8.0); TRIGLYCERIDES 158 mg/dl (<150)
== END | disposition home or self-care (01) ==
LOC: LAB 01:34
PROVIDERS: ATTEND Nurse Practitioner Family
DX: I10 Essential (primary) hypertension (principal); E78.5 Hyperlipidemia, unspecified; R73.01 Impaired fasting glucose; E55.9 Vitamin D deficiency, unspecified

== ENCOUNTER → 2023-03-19 | Outpatient (CLI) | payer OTHER, MEDICARE ==
[2023-03-19 11:20] LABS: BASO # 0.1 10*3/uL (0.0-0.1); BASO % 0.7 % (0.0-1.0); EOS # 0.3 10*3/uL (0.0-0.4); EOS % 3.5 % (1.0-4.0); HEMATOCRIT 43.6 % (37.0-47.0); LYMPH # 1.9 10*3/uL (1.3-4.4); LYMPH % 23.5 % (27.0-41.0); MEAN CORPUSCULAR HGB 28.8 pg (27.0-31.0); MEAN CORPUSCULAR HGB CONC 32.3 g/dl (33.0-37.0); MEAN PLATELET VOLUME 10.3 fl (9.6-12.3); MONO # 0.5 10*3/uL (0.1-1.0); MONO % 6.7 % (3.0-9.0); NEUT # 5.3 10*3/uL (2.3-7.9); NEUT % 65.4 % (47.0-73.0); PLATELET COUNT AUTOMATED 272 10*3/uL (130-400); RED CELL DISTRI WIDTH 12.8 % (0-14.5); WHITE BLOOD COUNT 8.1 10*3/uL (4.8-10.8)
[2023-03-19 12:12] LABS: ALKALINE PHOSPHATASE 81 U/L (46-116); BUN 7 mg/dl (9-23); CHLORIDE 107 mmol/L (98-107); CHOLESTEROL 174 mg/dL (<200); LDL CHOLESTEROL 87 mg/dL (9-159); POTASSIUM 4.1 mmol/L (3.4-5.1); SGPT/ALT 13 U/L (5-49); TOTAL PROTEIN 7.6 gm/dL (6.0-8.0); TRIGLYCERIDES 170 mg/dl (<150)
== END | disposition home or self-care (01) ==
LOC: LAB 00:27
PROVIDERS: ATTEND Nurse Practitioner Family
DX: E78.5 Hyperlipidemia, unspecified (principal); Z78.9 Other specified health status

== ENCOUNTER → 2023-04-09 | Outpatient (CLI) | payer OTHER, MEDICARE | END | disposition home or self-care (01) | LOC: MAMMO 04-08 08:30 | PROVIDERS: ATTEND Nurse Practitioner Family | DX: Z12.31 Encounter for screening mammogram for malignant neoplasm of breast (principal) ==

== ENCOUNTER → 2023-06-17 | Outpatient (CLI) | payer OTHER, MEDICARE ==
[2023-06-17 12:11] LABS: BASO # 0.1 10*3/uL (0.0-0.1); BASO % 1.1 % (0.0-1.0); EOS # 0.3 10*3/uL (0.0-0.4); EOS % 4.2 % (1.0-4.0); HEMATOCRIT 41.9 % (37.0-47.0); LYMPH # 1.7 10*3/uL (1.3-4.4); LYMPH % 28.1 % (27.0-41.0); MEAN CELL VOLUME 89.9 fl (81.0-99.0); MEAN CORPUSCULAR HGB 29.2 pg (27.0-31.0); MEAN CORPUSCULAR HGB CONC 32.5 g/dl (33.0-37.0); MEAN PLATELET VOLUME 10.4 fl (9.6-12.3); MONO # 0.6 10*3/uL (0.1-1.0); NEUT # 3.6 10*3/uL (2.3-7.9); NEUT % 57.4 % (47.0-73.0); PLATELET COUNT AUTOMATED 333 10*3/uL (130-400); RED BLOOD COUNT 4.66 10*6/uL (4.10-5.10); RED CELL DISTRI WIDTH 13.4 % (0-14.5); WHITE BLOOD COUNT 6.2 10*3/uL (4.8-10.8)
[2023-06-17 12:51] LABS: ALKALINE PHOSPHATASE 78 U/L (46-116); BUN 7 mg/dl (9-23); CHLORIDE 106 mmol/L (98-107); CHOLESTEROL 167 mg/dL (<200); LDL CHOLESTEROL 87 mg/dL (9-159); POTASSIUM 4.3 mmol/L (3.4-5.1); SGPT/ALT 14 U/L (5-49); TOTAL PROTEIN 7.3 gm/dL (6.0-8.0); TRIGLYCERIDES 141 mg/dl (<150)
== END | disposition home or self-care (01) ==
LOC: LAB 02:39
PROVIDERS: ATTEND Nurse Practitioner Family
DX: Z12.31 Encounter for screening mammogram for malignant neoplasm of breast (principal); I10 Essential (primary) hypertension; E78.5 Hyperlipidemia, unspecified; R73.01 Impaired fasting glucose

== ENCOUNTER → 2023-10-26 | Outpatient (CLI) | payer OTHER, MEDICARE | END | disposition home or self-care (01) | LOC: RAD 07-27 14:00 | PROVIDERS: ATTEND Nurse Practitioner Family | DX: M85.88 Other specified disorders of bone density and structure, other site (principal); Z78.0 Asymptomatic menopausal state; Z87.81 Personal history of (healed) traumatic fracture ==

== ENCOUNTER → 2023-12-28 | Outpatient (CLI) | payer OTHER, MEDICARE ==
[2023-12-28 12:39] LABS: BASO # 0.1 10*3/uL (0.0-0.1); BASO % 0.9 % (0.0-1.0); EOS # 0.3 10*3/uL (0.0-0.4); EOS % 3.4 % (1.0-4.0); HEMATOCRIT 43.2 % (37.0-47.0); MEAN CELL VOLUME 88.2 fl (81.0-99.0); MEAN CORPUSCULAR HGB 29.6 pg (27.0-31.0); MEAN CORPUSCULAR HGB CONC 33.6 g/dl (33.0-37.0); MEAN PLATELET VOLUME 10.4 fl (9.6-12.3); MONO # 0.6 10*3/uL (0.1-1.0); MONO % 7.9 % (3.0-9.0); NEUT # 4.7 10*3/uL (2.3-7.9); PLATELET COUNT AUTOMATED 283 10*3/uL (130-400); RED CELL DISTRI WIDTH 12.5 % (0-14.5); WHITE BLOOD COUNT 7.9 10*3/uL (4.8-10.8)
[2023-12-28 12:44] LABS: URINE CREATININE RANDOM 401.38 mg/dL
[2023-12-28 13:00] LABS: ALKALINE PHOSPHATASE 88 U/L (46-116); BUN 6 mg/dl (9-23); CHLORIDE 106 mmol/L (98-107); CHOLESTEROL 171 mg/dL (<200); LDL CHOLESTEROL 77 mg/dL (9-159); POTASSIUM 4.2 mmol/L (3.4-5.1); SGPT/ALT 14 U/L (5-49); TOTAL PROTEIN 7.7 gm/dL (6.0-8.0); TRIGLYCERIDES 188 mg/dl (<150)
== END | disposition home or self-care (01) ==
LOC: LAB 09:07
PROVIDERS: ATTEND Nurse Practitioner Family
DX: I10 Essential (primary) hypertension (principal); E78.5 Hyperlipidemia, unspecified; R73.01 Impaired fasting glucose

== ENCOUNTER → 2024-04-20 | Outpatient (CLI) | payer MEDICARE | END | disposition home or self-care (01) | LOC: RAD 12:39 | PROVIDERS: ATTEND Nurse Practitioner Family | DX: M19.031 Primary osteoarthritis, right wrist (principal); M25.731 Osteophyte, right wrist; M77.31 Calcaneal spur, right foot; M19.011 Primary osteoarthritis, right shoulder; M79.601 Pain in right arm; M79.89 Other specified soft tissue disorders ==

== ENCOUNTER → 2024-06-09 | Day surgery (SDC) | payer MEDICARE ==
[~2024-06-09] VITALS: Ht 160 cm; Wt 79.4 kg
[~2024-06-09] MED LIST changes: +Esmolol Hydrochloride 100 MG/10 ML VIAL IV ONE; +Lactated Ringer's Solution 1,000 ML IV ONE; +Lidocaine Hydrochloride 5 ML VIAL IV ONE; +PROPOFOL 200 MG/20 ML VIAL IV ONE
[2024-06-09 08:48] VITALS: BP 158/66
[2024-06-09 09:00] VITALS: BP 102/65
[2024-06-09 10:01] VITALS: BP 107/43
[2024-06-09 10:10] VITALS: BP 109/56
[2024-06-09 10:31] VITALS: BP 108/51
== END | disposition home or self-care (01) ==
LOC: SDC 06-08 12:30
PROVIDERS: ATTEND Surgery
DX: Z12.11 Encounter for screening for malignant neoplasm of colon (principal); D12.7 Benign neoplasm of rectosigmoid junction; K57.30 Diverticulosis of large intestine without perforation or abscess without bleeding; K64.8 Other hemorrhoids; K44.9 Diaphragmatic hernia without obstruction or gangrene; R13.10 Dysphagia, unspecified; I10 Essential (primary) hypertension; F41.9 Anxiety disorder, unspecified; M81.0 Age-related osteoporosis without current pathological fracture; M19.90 Unspecified osteoarthritis, unspecified site; E78.00 Pure hypercholesterolemia, unspecified; Z90.89 Acquired absence of other organs; Z96.651 Presence of right artificial knee joint; Z79.899 Other long term (current) drug therapy

== ENCOUNTER → 2024-10-12 | Outpatient (CLI) | payer MEDICARE ==
[~2024-10-12] MED LIST changes: -Esmolol Hydrochloride 100 MG/10 ML VIAL IV ONE; -Lactated Ringer's Solution 1,000 ML IV ONE; -Lidocaine Hydrochloride 5 ML VIAL IV ONE; -PROPOFOL 200 MG/20 ML VIAL IV ONE
[2024-10-12 12:28] LABS: BASO # 0.1 10*3/uL (0.0-0.1); BASO % 0.8 % (0.0-1.0); EOS # 0.3 10*3/uL (0.0-0.4); EOS % 3.7 % (1.0-4.0); MEAN CELL VOLUME 88.9 fl (81.0-99.0); MEAN CORPUSCULAR HGB 29.0 pg (27.0-31.0); MEAN PLATELET VOLUME 10.8 fl (9.6-12.3); MONO # 0.5 10*3/uL (0.1-1.0); MONO % 6.6 % (3.0-9.0); NEUT # 5.2 10*3/uL (2.3-7.9); NEUT % 66.7 % (47.0-73.0); NUCLEATED RED BLOOD CELL 0.0 % (0.0-0.0); NUCLEATED RED BLOOD CELL 0.0 10*3/uL (0.0-0.0); PLATELET COUNT AUTOMATED 315 10*3/uL (130-400); RED CELL DISTRI WIDTH 12.6 % (0-14.5)
[2024-10-12 13:20] LABS: BUN 12 mg/dl (9-23); LDL CHOLESTEROL 75 mg/dL (9-159); SGPT/ALT 12 U/L (5-49)
== END | disposition home or self-care (01) ==
LOC: LAB 01:56
PROVIDERS: ATTEND Nurse Practitioner Family
DX: I10 Essential (primary) hypertension (principal); E78.5 Hyperlipidemia, unspecified; E55.9 Vitamin D deficiency, unspecified; M81.0 Age-related osteoporosis without current pathological fracture; Z00.00 Encounter for general adult medical examination without abnormal findings; Z13.1 Encounter for screening for diabetes mellitus; K76.0 Fatty (change of) liver, not elsewhere classified

== ENCOUNTER → 2024-10-17 | Outpatient (CLI) | payer MEDICARE ==
[2024-10-17 13:55] LABS: BILIRUBIN 1+ (Negative); BLOOD Negative (Negative); CLARITY Cloudy (Clear); COLOR Dark Yellow (Yellow); KETONE 1+ (Negative); LEUKO ESTERASE 1+ (Negative); NITRITE Negative (Negative); PH 5.5 (4.5-8.0); SPECIFIC GRAVITY >= 1.030 (1.001-1.030); UROBILINOGEN 1.0 E.U./dl (0.0-1.0)
[2024-10-17 14:54] LABS: MUCOUS 3+
[2024-10-17 14:55] LABS: BACTERIA 2+
== END | disposition home or self-care (01) ==
LOC: LAB 01:53
PROVIDERS: ATTEND Nurse Practitioner Family
DX: I10 Essential (primary) hypertension (principal); M81.0 Age-related osteoporosis without current pathological fracture; K76.0 Fatty (change of) liver, not elsewhere classified; E55.9 Vitamin D deficiency, unspecified; E78.5 Hyperlipidemia, unspecified; Z00.00 Encounter for general adult medical examination without abnormal findings; Z13.1 Encounter for screening for diabetes mellitus; Z79.899 Other long term (current) drug therapy

== ENCOUNTER → 2024-12-12 | Outpatient (CLI) | payer MEDICARE | LOC: MRI 00:30 | PROVIDERS: ATTEND Nurse Practitioner Family | DX: M51.16 Intervertebral disc disorders with radiculopathy, lumbar region (principal); M47.26 Other spondylosis with radiculopathy, lumbar region; M48.07 Spinal stenosis, lumbosacral region; M41.86 Other forms of scoliosis, lumbar region; M81.0 Age-related osteoporosis without current pathological fracture; M48.04 Spinal stenosis, thoracic region; M51.34 Other intervertebral disc degeneration, thoracic region; M25.78 Osteophyte, vertebrae; M53.3 Sacrococcygeal disorders, not elsewhere classified; M47.818 Spondylosis without myelopathy or radiculopathy, sacral and sacrococcygeal region; R60.0 Localized edema ==

== ENCOUNTER 2024-12-15 12:02 | Emergency (ER) | payer MEDICARE ==
[~2024-12-15] VITALS: Wt 74.4 kg
[2024-12-15] MEDS ORDERED: SODIUM CHLORIDE 0.9% 1,000 ML IV ONE (13:15)
[2024-12-15] MEDS ORDERED: Ondansetron Hydrochloride 4 MG/2 ML VIAL IV ONE (13:20)
== END 2024-12-15 15:35 | disposition short-term general hospital (02) ==
LOC: ED 12:02
DX: G83.4 Cauda equina syndrome (principal); Z79.899 Other long term (current) drug therapy; Z96.651 Presence of right artificial knee joint

== ENCOUNTER → 2024-12-23 | Outpatient (CLI) | payer MEDICARE | END | disposition home or self-care (01) | LOC: CT 03:37 | PROVIDERS: ATTEND Neurological Surgery | DX: M48.56XA Collapsed vertebra, not elsewhere classified, lumbar region, initial encounter for fracture (principal); M47.817 Spondylosis without myelopathy or radiculopathy, lumbosacral region; M41.86 Other forms of scoliosis, lumbar region ==

== ENCOUNTER 2025-02-02 17:25 | Inpatient (IN) | payer MEDICARE ==
[~2025-02-02] VITALS: Ht 154.9 cm; Wt 74.4 kg
[2025-02-02 17:37] VITALS: BP 193/94
[2025-02-02 18:15] LABS: BASO # 0.1 10*3/uL (0.0-0.1); BASO % 0.7 % (0.0-1.0); EOS # 0.4 10*3/uL (0.0-0.4); EOS % 5.1 % (1.0-4.0); MEAN CELL VOLUME 91.8 fl (81.0-99.0); MEAN CORPUSCULAR HGB 30.5 pg (27.0-31.0); MEAN PLATELET VOLUME 9.5 fl (9.6-12.3); MONO # 1.4 10*3/uL (0.1-1.0); MONO % 18.2 % (3.0-9.0); NEUT # 4.1 10*3/uL (2.3-7.9); NEUT % 52.6 % (47.0-73.0); NUCLEATED RED BLOOD CELL 0.0 % (0.0-0.0); NUCLEATED RED BLOOD CELL 0.0 10*3/uL (0.0-0.0); PLATELET COUNT AUTOMATED 264 10*3/uL (130-400); RED CELL DISTRI WIDTH 13.8 % (0-14.5)
[2025-02-02 18:27] LABS: BILIRUBIN Negative (Negative); BLOOD Negative (Negative); CLARITY Cloudy (Clear); COLOR Yellow (Yellow); KETONE Negative (Negative); LEUKO ESTERASE 1+ (Negative); NITRITE Negative (Negative); PH 7.5 (4.5-8.0); SPECIFIC GRAVITY 1.020 (1.001-1.030); UROBILINOGEN 0.2 E.U./dl (0.0-1.0)
[2025-02-02 18:40] LABS: BACTERIA 2+
[2025-02-02 18:43] LABS: BUN 13 mg/dl (9-23)
[2025-02-02] MEDS ORDERED: fentaNYL 12 MCG PATCH T SCH (18:45)
[2025-02-02 20:41] VITALS: BP 205/108
[2025-02-02] MEDS ORDERED: Labetalol Hydrochloride 200 MG TAB PO SCH (22:00)
[2025-02-02] MEDS ORDERED: GABAPENTIN 600 MG TAB PO SCH (22:00)
[2025-02-02 22:08] VITALS: BP 205/108
[2025-02-03] VITALS: BP 156/63
[2025-02-03 05:58] LABS: BUN 10 mg/dl (9-23)
[2025-02-03 08:00] VITALS: BP 193/78
[2025-02-03 12:00] VITALS: BP 199/69
[2025-02-03 16:00] VITALS: BP 175/74
[2025-02-03] MEDS ORDERED: fentaNYL 25 MCG PATCH T SCH (16:40)
[2025-02-03 20:00] VITALS: BP 173/71
[2025-02-04] VITALS: BP 155/72
[2025-02-04 04:41] LABS: BUN 15 mg/dl (9-23)
[2025-02-04 08:00] VITALS: BP 155/68
[2025-02-04 12:00] VITALS: BP 133/76
[2025-02-04] MEDS ORDERED: PEPCID40 MG PO (13:20)
[2025-02-04] MEDS ORDERED: ATIVAN1 MG PO (13:21)
[2025-02-04] MEDS ORDERED: FOSAMAX70 M1 PO (13:21)
[2025-02-04] MEDS ORDERED: EFFEXOR XR75 M1 PO (13:22)
[2025-02-04 16:00] VITALS: BP 143/59
[2025-02-04] MEDS ORDERED: HYDROmorphONE Hydrochloride 0.5 MG/0.5 ML SYRINGE IV PRN (17:40)
[2025-02-04] MEDS ORDERED: Acetaminophen/Hydrocodone ES 7.5/325 tablet PO SCH (18:00)
[2025-02-04 20:00] VITALS: BP 140/89
[2025-02-05] VITALS (7 sets, daily range): BP systolic 136–155; BP diastolic 60–123
[2025-02-05 05:01] LABS: BUN 20 mg/dl (9-23)
[2025-02-05] MEDS ORDERED: DIVALPROEX ER 500 MG TAB PO SCH (15:50)
[2025-02-05] MEDS ORDERED: DICLOFENAC SODIUM 50 MG TAB PO SCH (17:00)
[2025-02-05] MEDS ORDERED: ACETAMINOPHEN 500 MG TAB PO SCH (22:00)
[2025-02-06] VITALS: BP 162/56
[2025-02-06] MEDS ORDERED: Naloxone Hydrochloride 0.4 MG/ML VIAL IV ONE (03:15)
[2025-02-06 08:00] VITALS: BP 95/73
[2025-02-06] MEDS ORDERED: Acetaminophen/Hydrocodone ES 7.5/325 tablet PO PRN (11:55)
[2025-02-06 11:56] VITALS: BP 149/55
[2025-02-06] MEDS ORDERED: BUPRENORPHINE HYDROCHLORIDE IV SCH (12:00)
[2025-02-06] MEDS ORDERED: Buprenorphine Hydrochloride 2 MG TAB SL SCH (12:14)
[2025-02-06 16:00] VITALS: BP 98/82
[2025-02-06 20:00] VITALS: BP 140/77
[2025-02-06] MEDS ORDERED: Buprenorphine Hydrochloride 2 MG TAB SL ONE (22:20)
[2025-02-07] VITALS: BP 142/84
[2025-02-07] MEDS ORDERED: Acetaminophen/Hydrocodone HP 10/325 PO PRN (00:55)
[2025-02-07] MEDS ORDERED: Buprenorphine Hydrochloride 2 MG TAB SL SCH (06:00)
[2025-02-07 08:00] VITALS: BP 158/66
[2025-02-07] MEDS ORDERED: AMLODIPINE BESYL5 MG PO (10:44)
[2025-02-07] MEDS ORDERED: GABAPENTIN600 MG PO (10:44)
[2025-02-07] MEDS ORDERED: DULOXETINE HCL60 MG PO (10:44)
[2025-02-07] MEDS ORDERED: DICLOFENAC SOD50 MG PO (10:44)
[2025-02-07] MEDS ORDERED: BUPRENORPHINE HY2 MG SL (10:44)
[2025-02-07] MEDS ORDERED: ACETAMINOPHEN500 M4 PO (10:44)
[2025-02-07 12:00] VITALS: BP 139/56
== END 2025-02-07 13:25 | disposition home or self-care (01) | DRG 552 ==
LOC: ED 17:25 → 4E 18:51 → EDHOLD 18:51 → 4E 19:58
PROVIDERS: Nurse Practitioner Family; ADMIT Internal Medicine; ATTEND Internal Medicine
DX: M48.061 Spinal stenosis, lumbar region without neurogenic claudication (principal); F33.1 Major depressive disorder, recurrent, moderate; G83.4 Cauda equina syndrome; M47.816 Spondylosis without myelopathy or radiculopathy, lumbar region; E55.9 Vitamin D deficiency, unspecified; I10 Essential (primary) hypertension; E78.2 Mixed hyperlipidemia; F41.1 Generalized anxiety disorder; G89.29 Other chronic pain; Z79.899 Other long term (current) drug therapy; Z79.01 Long term (current) use of anticoagulants; Z79.2 Long term (current) use of antibiotics; Z82.49 Family history of ischemic heart disease and other diseases of the circulatory system; Z81.2 Family history of tobacco abuse and dependence